=== PATIENT | female | born 2000 | race Two or more races ===

== ENCOUNTER 2022-12-12 12:16 | Emergency (ER) | payer OTHER ==
[~2022-12-12] VITALS: Ht 154.9 cm; Wt 64.4 kg
[2022-12-12] MEDS ORDERED: PEPCID AC20 MG PO (16:02)
[2022-12-12] MEDS ORDERED: ZYRTEC10 MG PO (16:02)
[2022-12-12] MEDS ORDERED: NASONEX 24HR AL17 ML IH (16:02)
[2022-12-12] MEDS ORDERED: AMOX-CLAV 875-1 EAC1 PO (16:02)
== END 2022-12-12 16:10 | disposition home or self-care (01) ==
LOC: ER 12:16
PROVIDERS: General Practice
DX: J32.9 Chronic sinusitis, unspecified (principal); Z20.822 Contact with and (suspected) exposure to COVID-19

== ENCOUNTER 2023-12-28 09:59 | Outpatient (CLI) | payer OTHER ==
[~2023-12-28 09:59] MED LIST: AMOX-CLAV 875-1 EAC1 PO; NASONEX 24HR AL17 ML IH; PEPCID AC20 MG PO; ZYRTEC10 MG PO
== END 2023-12-28 10:00 | disposition home or self-care (01) ==
LOC: PRENATAL 09:59
PROVIDERS: ATTEND Obstetrics & Gynecology Maternal & Fetal Medicine
DX: O36.80X0 Pregnancy with inconclusive fetal viability, not applicable or unspecified (principal); Z36.82 Encounter for antenatal screening for nuchal translucency; Z36.9 Encounter for antenatal screening, unspecified; Z14.8 Genetic carrier of other disease; Z3A.12 12 weeks gestation of pregnancy

== ENCOUNTER 2024-01-08 21:51 | Inpatient (IN) | payer OTHER ==
[~2024-01-08] VITALS: Ht 154.9 cm; Wt 72.1 kg
--- NOTE | 2024-01-08 22:17 | NUR ---
PACIENTE ALERTA Y ORIENTADA X 3. REFIERE DOS SEMANAS CON ARDOR AL ORINAR. INDICA ESTABA EN ANTIBIOTICO Y NO MEJORA. PACIENTE CON 13 2/7 DE EMBARAZO QUE SE TRATA CON DRA DIALLO.
[2024-01-08] MEDS ORDERED: PRENA1 TRUE CO1 EACH (22:19)
[2024-01-08] MEDS ORDERED: CEPHALEXIN750 MG (22:19)
[2024-01-08] MEDS ORDERED: MAGNESIUM250 MG (22:20)
[2024-01-08 23:53] LABS: HEMATOCRIT 32.9 % (36.0-45.00); MEAN CELL VOLUME 83.7 fL (80.00-100.00); MEAN CORPUSCULAR HEMOGLOBIN 28.1 pg (27.00-32.0); MEAN CORPUSCULAR HGB CONC 33.5 g/dl (32.0-36.0); PLATELET COUNT 210 K/uL (150-450); RED BLOOD COUNT 3.93 M/uL (4.00-6.00); RED CELL DISTRIBUTION WIDTH 14.1 % (11.5-14.5)
--- NOTE | 2024-01-08 23:56 | NUR ---
SE ORIENTA A PACIENTE SOBRE ORDENES MEDICAS Y REFIERE ENTENDER. SE COLECTA MUESTRA DE LABORATORIO BAJO MEDIDAS ASEPTICAS. SE ENTREGA ENVASE PARA U/A Y U/C.
[2024-01-09 00:41] LABS: PH,URINE 5.5 (5.0-8.0); URINE APPEARANCE Clear; URINE BILIRRUBIN Negative (NEGATIVE); URINE BLOOD Negative; URINE COLOR Yellow; URINE GLUCOSE Negative (NEGATIVE); URINE KETONE 15 (NEGATIVE); URINE LEUKOCYTE Negative; URINE NITRATE Negative; URINE PROTEIN Negative (NEGATIVE); URINE UROBILINOGEN 0.2 E.U./dl
[2024-01-09 00:45] LABS: URINE BACTERIA 124.6 uL (0.0-1933); URINE EPITHELIAL CELLS 14.6 uL (0.0-38.8); URINE RBC 7.1 uL (0.0-20.8); URINE WBC 9.4 uL (0.0-23.2)
[2024-01-09] MEDS ORDERED: CEFTRIAXONE SODIUM 1,000 MG VIAL IV SCH (01:36)
[2024-01-09] MEDS ORDERED: CEFTRIAXONE SODIUM 1,000 MG VIAL IV STA (01:36)
[2024-01-09] MEDS ORDERED: NITROFURANTOIN MONOHYD/M-CRYST 100 MG CAPSULE PO STA (01:36)
[2024-01-09] MEDS ORDERED: 0.9 % SODIUM CHLORIDE 1,000 ML IV ONE (01:45)
[2024-01-09] MEDS ORDERED: ACETAMINOPHEN 500 MG GEL..CAP PO PRN (02:15)
[2024-01-09 02:46] LABS: ALBUMIN 3.6 gm/dL (3.4-5.0); BILIRUBIN TOTAL 0.16 mg/dL (0.3-1.2); CALCIUM 9.4 mg/dL (8.5-10.1); CREATININE SERUM 0.45 mg/dL (0.55-1.02); GFR 172.66; POTASSIUM 3.38 mEq/L (3.5-5.1); TOTAL PROTEIN 7.6 gm/dL (6.4-8.2)
[2024-01-09 03:28] VITALS: BP 110/80; O2SAT 98
[2024-01-09 03:31] VITALS: BP 110/80
[2024-01-09 05:45] VITALS: BP 102/67
[2024-01-09 09:55] VITALS: BP 98/63; O2SAT 98
[2024-01-09 16:06] VITALS: BP 102/66
[2024-01-09] MEDS ORDERED: TERCONAZOLE 20 GM TUBE VAG SCH (21:00)
[2024-01-10 01:06] VITALS: BP 102/67
[2024-01-10 08:59] VITALS: BP 97/61
[2024-01-10] MEDS ORDERED: NITROFURANTOIN MONOHYD/M-CRYST 100 MG CAPSULE PO SCH (09:00)
[2024-01-10 17:07] VITALS: BP 96/61
[2024-01-11 01:02] VITALS: BP 111/66
[2024-01-11 08:44] VITALS: BP 95/61
== END 2024-01-11 10:24 | disposition home or self-care (01) | DRG 833 ==
LOC: ER 21:52 → OB/GYN 01-09 01:42
PROVIDERS: General Practice; Preventive Medicine Public Health & General Preventive Medicine; ADMIT Obstetrics & Gynecology; ATTEND Obstetrics & Gynecology
PROC: 4A1HXCZ Monitoring of Products of Conception, Cardiac Rate, External Approach (ICD-10-PCS; principal; 2024-01-09)
PROC: BY49ZZZ Ultrasonography of First Trimester, Single Fetus (ICD-10-PCS; 2024-01-09)
PROC: BT43ZZZ Ultrasonography of Bilateral Kidneys (ICD-10-PCS; 2024-01-09)
DX: O23.01 Infections of kidney in pregnancy, first trimester (principal); Z3A.13 13 weeks gestation of pregnancy; Z20.822 Contact with and (suspected) exposure to COVID-19

== ENCOUNTER 2024-01-18 15:03 | Emergency (ER) | payer OTHER ==
[~2024-01-18] VITALS: Ht 154.9 cm; Wt 58.1 kg
[~2024-01-18 15:03] MED LIST changes: +CEPHALEXIN750 MG; +MAGNESIUM250 MG; +PRENA1 TRUE CO1 EACH
== END 2024-01-18 20:10 | disposition home or self-care (01) ==
LOC: ER 15:05
DX: R10.2 Pelvic and perineal pain (principal)

== ENCOUNTER → 2024-02-21 09:29 | Outpatient (CLI) | payer OTHER | END | disposition home or self-care (01) | LOC: PRENATAL 09:29 | PROVIDERS: ATTEND Obstetrics & Gynecology Maternal & Fetal Medicine | DX: O44.00 Complete placenta previa NOS or without hemorrhage, unspecified trimester (principal); Z14.8 Genetic carrier of other disease; O34.10 Maternal care for benign tumor of corpus uteri, unspecified trimester; Z3A.19 19 weeks gestation of pregnancy ==

== ENCOUNTER 2024-04-23 10:33 | Outpatient (CLI) | payer OTHER | END 2024-04-23 10:34 | disposition home or self-care (01) | LOC: PRENATAL 10:33 | PROVIDERS: ATTEND Obstetrics & Gynecology Maternal & Fetal Medicine | DX: O26.849 Uterine size-date discrepancy, unspecified trimester (principal); O36.8199 Decreased fetal movements, unspecified trimester, other fetus; O36.5990 Maternal care for other known or suspected poor fetal growth, unspecified trimester, not applicable or unspecified; O34.10 Maternal care for benign tumor of corpus uteri, unspecified trimester; Z3A.28 28 weeks gestation of pregnancy ==

== ENCOUNTER 2024-06-11 09:08 | Outpatient (CLI) | payer OTHER | END 2024-06-11 09:10 | disposition home or self-care (01) | LOC: PRENATAL 09:08 | PROVIDERS: ATTEND Obstetrics & Gynecology Maternal & Fetal Medicine | DX: O26.849 Uterine size-date discrepancy, unspecified trimester (principal); O36.8199 Decreased fetal movements, unspecified trimester, other fetus; O36.5990 Maternal care for other known or suspected poor fetal growth, unspecified trimester, not applicable or unspecified; O34.10 Maternal care for benign tumor of corpus uteri, unspecified trimester; Z3A.32 32 weeks gestation of pregnancy ==

== ENCOUNTER 2024-06-18 09:41 | Outpatient (CLI) | payer OTHER | END 2024-06-18 09:42 | disposition home or self-care (01) | LOC: PRENATAL 09:41 | PROVIDERS: ATTEND Obstetrics & Gynecology Maternal & Fetal Medicine | DX: O36.8199 Decreased fetal movements, unspecified trimester, other fetus (principal); O36.5990 Maternal care for other known or suspected poor fetal growth, unspecified trimester, not applicable or unspecified; O34.10 Maternal care for benign tumor of corpus uteri, unspecified trimester; Z3A.36 36 weeks gestation of pregnancy ==

== ENCOUNTER 2024-06-19 08:22 | Inpatient (IN) | payer OTHER ==
[~2024-06-19] VITALS: Ht 154.9 cm; Wt 1.8 kg
[2024-06-19 08:52] VITALS: BP 92/58
[2024-06-19 09:00] VITALS: BP 92/58
[2024-06-19 09:49] LABS: HEMATOCRIT 34.2 % (36.0-45.00); HEMOGLOBIN 11.5 g/dL (12.0-15.00); MEAN CELL VOLUME 85.1 fL (80.00-100.00); MEAN CORPUSCULAR HEMOGLOBIN 28.5 pg (27.00-32.0); MEAN CORPUSCULAR HGB CONC 33.5 g/dl (32.0-36.0); PLATELET COUNT 184 K/uL (150-450); RED BLOOD COUNT 4.03 M/uL (4.00-6.00); RED CELL DISTRIBUTION WIDTH 14.3 % (11.5-14.5)
[2024-06-19 09:52] LABS: PH,URINE 7.5 (5.0-8.0); URINE APPEARANCE Clear; URINE BILIRRUBIN Negative (NEGATIVE); URINE BLOOD Negative; URINE COLOR Yellow; URINE GLUCOSE Negative (NEGATIVE); URINE KETONE Negative (NEGATIVE); URINE LEUKOCYTE Small; URINE NITRATE Negative; URINE PROTEIN Negative (NEGATIVE); URINE UROBILINOGEN 0.2 E.U./dl
[2024-06-19 09:57] LABS: URINE BACTERIA 1143.1 uL (0.0-1933); URINE EPITHELIAL CELLS 65.2 uL (0.0-38.8); URINE WBC 18.8 uL (0.0-23.2)
[2024-06-19] MEDS ORDERED: CEFAZOLIN SODIUM 1,000 MG VIAL IV NR (10:00)
[2024-06-19] MEDS ORDERED: RINGERS SOLUTION,LACTATED 1,000 ML IV SCH (10:00)
[2024-06-19 10:02] LABS: URINE CAST 0.58 uL (0.0-1.40); URINE RBC 1.7 uL (0.0-20.8)
[2024-06-19 10:13] LABS: INR 0.94; PARTIAL THROMBOPLASTIN TIME 30.7 SECONDS (22.0-34.0); PROTHROMBIN TIME 10.3 SECONDS (9.0-11.5)
[2024-06-19] MEDS ORDERED: ERYTHROMYCIN BASE OPHT 1GM EACH TUBE OP ONE (12:45)
[2024-06-19] MEDS ORDERED: OXYTOCIN 10 UNITS/ML VIAL IV ONE (12:45)
[2024-06-19] MEDS ORDERED: TRIAMCINOLONE ACETONIDE 40 MG/ML VIAL IJ ONE (13:30)
[2024-06-19] MEDS ORDERED: OXYTOCIN 1,000 ML IV SCH (14:00)
[2024-06-19] MEDS ORDERED: ONDANSETRON HCL 2 MG/ML VIAL IV PRN (14:00)
[2024-06-19] MEDS ORDERED: MORPHINE SULFATE 4 MG/ML CARTRIDGE IV PRN (14:00)
[2024-06-19] MEDS ORDERED: MORPHINE SULFATE 4 MG/ML VIAL IV ONE ×2 (15:15→16:15)
[2024-06-19] MEDS ORDERED: KETOROLAC TROMETHAMINE 30 MG VIAL IV NR (17:00)
[2024-06-19] MEDS ORDERED: ACETAMINOPHEN 325 MG TABLET PO SCH (18:00)
[2024-06-19] MEDS ORDERED: SIMETHICONE 125 MG CAPSULE PO SCH (18:00)
[2024-06-19 19:31] VITALS: BP 113/72
[2024-06-19 20:20] VITALS: BP 113/72
[2024-06-20] VITALS: BP 95/60
[2024-06-20] MEDS ORDERED: KETOROLAC TROMETHAMINE 30 MG VIAL IV SCH
[2024-06-20 04:30] VITALS: BP 107/71
[2024-06-20] MEDS ORDERED: OxyCODONE HCL 5 MG TABLET (ROXICODONE) PO PRN (06:00)
[2024-06-20 06:31] LABS: HEMATOCRIT 31.9 % (36.0-45.00); HEMOGLOBIN 10.5 g/dL (12.0-15.00); MEAN CORPUSCULAR HEMOGLOBIN 28.3 pg (27.00-32.0); MEAN CORPUSCULAR HGB CONC 32.9 g/dl (32.0-36.0); PLATELET COUNT 187 K/uL (150-450); RED CELL DISTRIBUTION WIDTH 13.6 % (11.5-14.5)
[2024-06-20 08:42] VITALS: BP 111/64
[2024-06-20] MEDS ORDERED: IBUprofen 400 MG TABLET PO SCH (09:00)
[2024-06-20] MEDS ORDERED: IRON FUM,PS/FOLIC ACID/VITC/B3 1 CAP CAPSULE PO SCH (09:00)
[2024-06-20] MEDS ORDERED: PNV,CALCIUM 72/IRON/FOLIC ACID 1 TAB TABLET PO SCH (10:37)
[2024-06-20 23:09] VITALS: BP 100/62
[2024-06-21 08:11] VITALS: BP 100/65
[2024-06-21 18:04] VITALS: BP 119/77
[2024-06-22 00:30] VITALS: BP 100/65
[2024-06-22 11:22] VITALS: BP 107/72
[2024-06-22 16:19] VITALS: BP 115/72
[2024-06-23 00:16] VITALS: BP 103/62
[2024-06-23 08:09] VITALS: BP 110/60
[2024-06-23] MEDS ORDERED: IBU800 MG PO (08:39)
[2024-06-23] MEDS ORDERED: SURFAK240 M1 PO (08:39)
[2024-06-23 16:28] VITALS: BP 107/66
== END 2024-06-23 18:11 | disposition home or self-care (01) | DRG 788 ==
LOC: LDR 08:22 → O/R 15:26 → OB/GYN 15:43
PROVIDERS: ADMIT Obstetrics & Gynecology; ATTEND Obstetrics & Gynecology
PROC: 4A1HXCZ Monitoring of Products of Conception, Cardiac Rate, External Approach (ICD-10-PCS; 2024-06-19)
PROC: 10D00Z1 Extraction of Products of Conception, Low, Open Approach (ICD-10-PCS; principal; 2024-06-19 15:30)
DX: O82 Encounter for cesarean delivery without indication (principal); O69.81X0 Labor and delivery complicated by cord around neck, without compression, not applicable or unspecified; O36.5930 Maternal care for other known or suspected poor fetal growth, third trimester, not applicable or unspecified; Z3A.37 37 weeks gestation of pregnancy; Z37.0 Single live birth